=== PATIENT | female | born 1965 | race Caucasian/White ===

== ENCOUNTER → 2018-11-30 | Outpatient (CLI) | payer BC | END | disposition home or self-care (01) | LOC: OIH 09:03 | PROVIDERS: ATTEND Internal Medicine | DX: M48.07 Spinal stenosis, lumbosacral region (principal); M40.46 Postural lordosis, lumbar region | CPT/HCPCS: 72100 ==

== ENCOUNTER 2019-01-11 05:30 | Day surgery (SDC) | payer BC ==
[~2019-01-11] VITALS: Ht 167.6 cm; Wt 56.7 kg
[2019-01-11] VITALS (9 sets, daily range): BP systolic 92–113; BP diastolic 55–67
[2019-01-11] MEDS ORDERED: SODIUM CHLORIDE 0.9% 1000ML 1,000 ML IV ONE (05:45)
[2019-01-11] MEDS ORDERED: PROPOFOL 1000 MG/100 ML 100 ML IV ONE (06:20)
[2019-01-11] MEDS ORDERED: LIDOCAINE HCL 1% 20 ML VIAL ONE (06:21)
[2019-01-11] MEDS ORDERED: GLYCOPYRROLATE 0.2 MG/ML 5 ML VIAL ONE (06:22)
== END 2019-01-11 07:40 | disposition home or self-care (01) ==
LOC: DAH 05:30 → ENDO 05:30
PROVIDERS: ATTEND Internal Medicine
DX: K29.50 Unspecified chronic gastritis without bleeding (principal); D50.0 Iron deficiency anemia secondary to blood loss (chronic); F41.9 Anxiety disorder, unspecified; Z79.899 Other long term (current) drug therapy; Z90.710 Acquired absence of both cervix and uterus; Z98.890 Other specified postprocedural states; K95.89 Other complications of other bariatric procedure; Z98.84 Bariatric surgery status
CPT/HCPCS: 43239; 43245; A4606; C1726; J2704; J3490; J7030

== ENCOUNTER 2019-01-29 05:44 | Day surgery (SDC) | payer BC ==
[~2019-01-29] VITALS: Ht 167.6 cm; Wt 57.2 kg
[2019-01-29] VITALS (9 sets, daily range): BP systolic 105–122; BP diastolic 45–68
[2019-01-29] MEDS ORDERED: PROPOFOL 10 MG/ML 20ML VIAL IV ONE (06:33)
[2019-01-29] MEDS ORDERED: GLYCOPYRROLATE 0.2 MG/ML 5 ML VIAL ONE (06:35)
[2019-01-29] MEDS ORDERED: SIMETHICONE 40 MG/0.6 ML ML ONE (06:42)
[2019-01-29] MEDS ORDERED: OMEP40CA37 PO (06:49)
[2019-01-29] MEDS ORDERED: ESCI20TA PO (06:49)
[2019-01-29] MEDS ORDERED: ERGO500014 PO (06:49)
[2019-01-29] MEDS ORDERED: METO-296 PO (06:49)
== END 2019-01-29 07:45 | disposition home or self-care (01) ==
LOC: ENDO 05:44 → DAH 05:44 → ENDO 07:45
PROVIDERS: ATTEND Internal Medicine
DX: K95.89 Other complications of other bariatric procedure (principal); R13.10 Dysphagia, unspecified; K22.8 Other specified diseases of esophagus; K56.699 Other intestinal obstruction unspecified as to partial versus complete obstruction; Z98.0 Intestinal bypass and anastomosis status; F41.9 Anxiety disorder, unspecified; D64.9 Anemia, unspecified; Z79.899 Other long term (current) drug therapy; Z90.710 Acquired absence of both cervix and uterus; Z98.890 Other specified postprocedural states; Z98.84 Bariatric surgery status; R00.1 Bradycardia, unspecified
CPT/HCPCS: 43245; J2704; J3490; 43249

== ENCOUNTER 2019-03-01 08:23 | Day surgery (SDC) | payer BC ==
[~2019-03-01] VITALS: Ht 167.6 cm; Wt 54.4 kg
[~2019-03-01 08:23] MED LIST: ERGO500014 PO; ESCI20TA PO; METO-296 PO; OMEP40CA37 PO; SODIUM CHLORIDE 0.9% 1000ML 1,000 ML IV ONE
[2019-03-01] MEDS ORDERED: TRIAMCINOLONE ACETONIDE 40 MG/ML 1ML VIAL IM SCH (10:15)
[2019-03-01 10:29] VITALS: BP 108/56
[2019-03-01] MEDS ORDERED: PROPOFOL 10 MG/ML 20ML VIAL IV ONE ×2 (11:28)
[2019-03-01 11:45] VITALS: BP 114/66
[2019-03-01 11:50] VITALS: BP 127/69
[2019-03-01 12:01] VITALS: BP 124/74
== END 2019-03-01 12:16 | disposition home or self-care (01) ==
LOC: ENDO 08:23 → DAH 08:23 → ENDO 12:16
PROVIDERS: ATTEND Internal Medicine
DX: K95.89 Other complications of other bariatric procedure (principal); F41.9 Anxiety disorder, unspecified; D64.9 Anemia, unspecified; Z79.899 Other long term (current) drug therapy; Z98.890 Other specified postprocedural states; Z90.710 Acquired absence of both cervix and uterus; Z98.84 Bariatric surgery status
CPT/HCPCS: 43236; 43245; A4606; J2704 ×2; J3301; J7030; 43249

== ENCOUNTER → 2019-03-13 | Outpatient (CLI) | payer BC ==
[~2019-03-13] MED LIST changes: -SODIUM CHLORIDE 0.9% 1000ML 1,000 ML IV ONE
== END | disposition home or self-care (01) ==
LOC: RAH 11:01
PROVIDERS: ATTEND Internal Medicine
DX: M51.36 Other intervertebral disc degeneration, lumbar region (principal); M51.37 Other intervertebral disc degeneration, lumbosacral region; M47.816 Spondylosis without myelopathy or radiculopathy, lumbar region
CPT/HCPCS: 72148

== ENCOUNTER → 2019-07-24 | Outpatient (CLI) | payer BC ==
[~2019-07-24] MED LIST changes: +OMEP40CA13 PO; -OMEP40CA37 PO
== END | disposition home or self-care (01) ==
LOC: RAH 08:45
PROVIDERS: ATTEND Internal Medicine
DX: R13.10 Dysphagia, unspecified (principal)
CPT/HCPCS: 74245

== ENCOUNTER → 2020-04-09 | Outpatient (CLI) | payer BC | END | disposition home or self-care (01) | LOC: OIH 13:04 | PROVIDERS: ATTEND Internal Medicine | DX: S93.601A Unspecified sprain of right foot, initial encounter (principal); X58.XXXA Exposure to other specified factors, initial encounter; Y92.89 Other specified places as the place of occurrence of the external cause; Y93.89 Activity, other specified; Y99.8 Other external cause status | CPT/HCPCS: 73620 ==

== ENCOUNTER 2023-08-15 06:00 | Day surgery (SDC) | payer BC ==
[~2023-08-15] VITALS: Ht 170.2 cm; Wt 63.0 kg
[2023-08-15] VITALS (10 sets, daily range): BP systolic 85–105; BP diastolic 36–58; PULSE 50–65; RESP 13–16
[~2023-08-15 06:00] MED LIST changes: +CELE-146 PO; -ERGO500014 PO; -ESCI20TA PO; +GABA-529 PO; +HYDR-3421 PO; -METO-296 PO; -OMEP40CA13 PO; +PANT40TA54 PO; +PRAZ1CAP5 PO; +TRAZ-187 PO; +VENL75 PO
[2023-08-15] MEDS ORDERED: PROPOFOL 10 MG/ML 20ML VIAL IV ONE ×2 (07:25)
[2023-08-15] MEDS ORDERED: MIDAZOLAM HCL 1 MG/ML 2ML VIAL ONE (07:26)
[2023-08-15] MEDS ORDERED: TRIAMCINOLONE ACETONIDE 40 MG/ML 1ML VIAL IM SCH (08:00)
== END 2023-08-15 09:10 | disposition home or self-care (01) ==
LOC: DAH 06:00 → ENDO 06:00
PROVIDERS: ATTEND Internal Medicine Gastroenterology
DX: R13.10 Dysphagia, unspecified (principal); K31.89 Other diseases of stomach and duodenum; K95.89 Other complications of other bariatric procedure; R10.13 Epigastric pain; D50.9 Iron deficiency anemia, unspecified; Z98.0 Intestinal bypass and anastomosis status; Z80.0 Family history of malignant neoplasm of digestive organs; K64.0 First degree hemorrhoids; K57.30 Diverticulosis of large intestine without perforation or abscess without bleeding; Z98.84 Bariatric surgery status; Z90.710 Acquired absence of both cervix and uterus; Z98.891 History of uterine scar from previous surgery; Z98.890 Other specified postprocedural states
CPT/HCPCS: 43249; J2250; J2704 ×2; J3301; A4620; A4215 ×2; A4223; A7002; A4222; A4221; A4663; A4216; J7030; A4606; J3490

== ENCOUNTER → 2024-10-04 | Outpatient (CLI) | payer BC ==
--- NOTE | 2024-10-04 11:58 | HMCIMG ---
CERV SPINE 2-3VWS HISTORY: Cervical radiculopathy COMPARISON: None FINDINGS: 4 images of cervical spine were obtained. There is straightening of normal lordotic curvature which may be related to muscle spasm or positioning. No loss of vertebral height is seen. No fracture or dislocation is seen. Degenerative changes are seen. IMPRESSION: 1. No fracture is seen.
== END | disposition home or self-care (01) ==
LOC: RAH 10:38
PROVIDERS: ATTEND Internal Medicine
DX: M47.22 Other spondylosis with radiculopathy, cervical region (principal)
CPT/HCPCS: 72040

== ENCOUNTER → 2024-10-07 | Outpatient (CLI) | payer BC ==
--- NOTE | 2024-10-08 08:48 | HMCIMG ---
SHOULDER COMP 2+VWS LT REASON: LT SHOULDER TENDONITIS TECHNIQUE: 2 views were obtained. FINDINGS: There is a left shoulder joint prosthesis. There are no visible fractures in the remaining bone. Hardware appears intact. IMPRESSION: No acute findings.
== END | disposition home or self-care (01) ==
LOC: OIH 15:23
PROVIDERS: ATTEND Internal Medicine
DX: M47.812 Spondylosis without myelopathy or radiculopathy, cervical region (principal); M54.12 Radiculopathy, cervical region; M75.82 Other shoulder lesions, left shoulder; R29.898 Other symptoms and signs involving the musculoskeletal system
CPT/HCPCS: 73030

== ENCOUNTER → 2024-10-11 | Outpatient (CLI) | payer BC ==
--- NOTE | 2024-10-11 10:30 | HMCIMG ---
MR SPINAL CANAL, CERV WO CON REASON: M54.12 RADICULOPATHY CERVICAL REGION COMPARISON: None TECHNIQUE: Routine cervical imaging protocol was performed. Exam was performed without IV contrast. FINDINGS: There are normal appearing cervical vertebral bodies. Intervertebral disc space heights are preserved. Vertebral body alignment is normal. Cervical cord and craniocervical junction appear normal. Axial images show widely patent spinal canal and thecal sac. There is no disc herniation or focal spinal stenosis. Neural foramina appear preserved as well. IMPRESSION: 1. Normal MRI of the cervical spine.
== END | disposition home or self-care (01) ==
LOC: RAH 08:08
PROVIDERS: ATTEND Internal Medicine
DX: M54.12 Radiculopathy, cervical region (principal); M47.812 Spondylosis without myelopathy or radiculopathy, cervical region; M75.82 Other shoulder lesions, left shoulder; R29.898 Other symptoms and signs involving the musculoskeletal system
CPT/HCPCS: 72141

== ENCOUNTER → 2024-10-30 | Outpatient (CLI) | payer BC ==
--- NOTE | 2024-10-30 15:56 | HMCIMG ---
MR SHOULDER LEFT WO REASON: IMPINGEMENT SYNDROME Comparison: None. TECHNIQUE: Routine imaging protocol was performed in the sagittal, axial and coronal plane with T1, proton density, T2 and gradient recalled sequences. 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 This causes field inhomogeneity artifact, obscuring of the bone adjacent to to the prosthesis components. This also obscures the glenohumeral joint region. There are mild degenerative changes in the AC joint. There is a hook shaped acromion which extends inferiorly in relation to the distal clavicle. These findings are moderate in degree. This could potentially result in impingement in the appropriate clinical setting. Visualized bones and muscles appear normal. There are no visible fluid collections. IMPRESSION: 1. Total joint prosthesis in place limiting osseous evaluation. 2. AC joint is well visualized, there is marked shaped acromion which extends inferiorly compared to the distal clavicle, this could result in impingement in the appropriate clinical setting.
== END | disposition home or self-care (01) ==
LOC: RAH 14:47
PROVIDERS: ATTEND Internal Medicine
DX: M19.012 Primary osteoarthritis, left shoulder (principal); M75.42 Impingement syndrome of left shoulder
CPT/HCPCS: 73221

== ENCOUNTER → 2024-12-16 | Outpatient (CLI) | payer BC ==
--- NOTE | 2024-12-16 14:06 | HMCIMG ---
CERV SPINE 2-3VWS HISTORY: Cervical radiculopathy COMPARISON: None FINDINGS: 4 images of cervical spine were obtained. Bony osteopenia is seen. There are degenerative changes of cervical spine spondylosis. There is straightening of normal lordotic curvature which may be related to muscle spasm or positioning. No loss of vertebral height is seen. No fracture or dislocation is seen. Degenerative changes are seen. IMPRESSION: 1. No fracture is seen. DJD.
== END | disposition home or self-care (01) ==
LOC: RAH 13:14
PROVIDERS: ATTEND Internal Medicine
DX: M47.22 Other spondylosis with radiculopathy, cervical region (principal); M48.8X2 Other specified spondylopathies, cervical region; M85.88 Other specified disorders of bone density and structure, other site
CPT/HCPCS: 72040